=== PATIENT | male | born 1995 | race Caucasian/White ===

== ENCOUNTER 2017-09-13 06:55 | Emergency (ER) | payer OTHER ==
[~2017-09-13] VITALS: Ht 177.8 cm; Wt 77.1 kg
[2017-09-13 08:34] VITALS: BP 142/68
== END 2017-09-13 08:34 | disposition home or self-care (01) ==
LOC: ED 06:55
DX: J01.90 Acute sinusitis, unspecified (principal); F12.10 Cannabis abuse, uncomplicated